=== PATIENT | male | born 1990 | race American Indian/Alaskan Native ===

== ENCOUNTER 2021-01-21 03:42 | Emergency (ER) | payer SELFPAY ==
--- NOTE | 2021-01-21 06:29 | XRay Report ---
CHEST 2 VIEWS INDICATION / CLINICAL INFORMATION: dyspnea, chest tightness STUDY TIME: 601 COMPARISON: None available. FINDINGS: SUPPORT DEVICES: None. HEART / MEDIASTINUM: No significant abnormality. LUNGS / PLEURA: No significant pulmonary or pleural abnormality. No pneumothorax. ADDITIONAL FINDINGS: No significant additional findings. Signer Name: Jair Perez MD Signed: 01/21/2021 6:24 AM Workstation Name: [id number]
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
[2021-01-21 07:39] VITALS: BP 124/75
== END 2021-01-21 07:39 | disposition home or self-care (01) ==
LOC: ED 03:42
DX: F41.9 Anxiety disorder, unspecified (principal); R06.02 Shortness of breath; F17.200 Nicotine dependence, unspecified, uncomplicated
CPT/HCPCS: 71046; 99283